=== PATIENT | female | born 1940 | race Hispanic/Latino ===

== ENCOUNTER 2022-01-21 12:31 | Emergency (ER) | payer MEDICARE ==
[2022-01-21] MEDS ORDERED: methylPREDNISolone Sod Succ/PF 125 MG/2 ML VIAL ONE (13:38)
== END 2022-01-21 15:00 | disposition home or self-care (01) ==
LOC: CSHERS 12:31
DX: M54.31 Sciatica, right side (principal); E11.9 Type 2 diabetes mellitus without complications; I10 Essential (primary) hypertension
CPT/HCPCS: 72100; 96372; J2930